=== PATIENT | female | born 1990 ===

== ENCOUNTER 2018-01-23 14:50 | Inpatient (IN) | payer OTHER ==
[2018-01-23] MEDS ORDERED: Sodium Chloride 0.9% 1,000 ML IV STA ×3 (15:40→20:05)
--- NOTE | 2018-01-23 15:41 | ED PDOC ---
HPI: Fever Fever Onset Was: 01/20/18 Additional Comments: 27 year old female presents to the ED complaining of fever associated with right sided back pain, nausea, vomiting, and diarrhea, onset three days ago. Patient reports of a fever with a tMax of 103 yesterday. Patient states she last took Advil this morning at 8 am. Denies urinary symptoms. PMD: None Provided Past Medical History Reviewed: Historical Data, Nursing Documentation, Vital Signs Vital Signs: Last Vital Signs Temp 99.2 F 01/23/18 18:01 Pulse 102 H 01/23/18 18:01 Resp 16 01/23/18 18:01 BP 100/51 L 01/23/18 19:39 Pulse Ox 97 01/23/18 18:01 - Medical History PMH: No Chronic Diseases - Surgical History Surgical History: No Surg Hx - Family History Family History: States: Unknown Family Hx - Home Medications Home Medications: Ambulatory Orders Medication Instructions Recorded Levofloxacin [Levaquin] 500 mg PO DAILY 7 Days #7 tablet 01/25/18 - Allergies Allergies/Adverse Reactions: Allergies Allergy/AdvReac Type Severity Reaction Status Date / Time No Known Allergies Allergy Verified 01/23/18 15:04 Review of Systems Constitutional: Positive for: Fever ([id number]) Gastrointestinal: Positive for: Nausea, Vomiting, Diarrhea Genitourinary Female: Negative for: Dysuria, Hematuria Musculoskeletal: Positive for: Back Pain (right sided ) Physical Exam - Reviewed Nursing Documentation Reviewed: Yes Vital Signs Reviewed: Yes - Physical Exam Appears: Positive for: Non-toxic, No Acute Distress Head Exam: Positive for: ATRAUMATIC, NORMOCEPHALIC Skin: Positive for: Normal Color Eye Exam: Positive for: Normal appearance ENT: Positive for: Normal ENT Inspection Neck: Positive for: Normal Cardiovascular/Chest: Positive for: Regular Rate, Rhythm. Negative for: Murmur Respiratory: Positive for: Normal Breath Sounds. Negative for: Respiratory Distress Gastrointestinal/Abdominal: Positive for: Normal Exam Back: Positive for: Normal Inspection, R CVA Tenderness Extremity: Positive for: Normal ROM. Negative for: Pedal Edema, Deformity Neurologic/Psych: Positive for: Alert, Oriented. Negative for: Motor/Sensory Deficits - Laboratory Results Result Diagrams: 01/24/18 13:25 01/24/18 13:25 - ECG O2 Sat by Pulse Oximetry: 99 (RA) Pulse Ox Interpretation: Normal Medical Decision Making Medical Decision Making: Time: 154 Impression: Flank Pain, fever Differentials include but not limited to urinary tract infection, pyelonephritis Plan: -- VBG Shock Panel -- CMP -- Lipase -- ED Urine -- ED Urine Dipstick -- CBC with differentials -- PTT -- Prothrombin Time -- Morphine 2 mg IV -- Sodium Chloride IV 1000 mls/hr -- Zofran Inj 4 mg IV -- Urinalysis Time: 1605 Plan: -- VBG -- CT Abd & Pelvis w.o contrast -- Motrin 600 mg PO -- Rocephin 1 gm Sodium Chloride 0.9% 100ml IV -- Tylenol 650 mg PO Time: 1730 CT ABD/PELVIS RESULTS FINDINGS: LOWER THORAX: Nonspecific elevation of left hemidiaphragm is noted. LIVER: Unremarkable. No gross lesion or ductal dilatation. GALLBLADDER AND BILE DUCTS: Unremarkable. PANCREAS: Unremarkable. No gross lesion or ductal dilatation. SPLEEN: Unremarkable. ADRENALS: Unremarkable. No mass. KIDNEYS AND URETERS: Unremarkable. No hydronephrosis. No solid mass. VASCULATURE: Unremarkable. No aortic aneurysm. BOWEL: Lack of oral and intravenous contrast limits evaluation the gastrointestinal tract. No bowel obstruction is appreciated throughout. Mild fecal loading is scattered throughout the large bowel. APPENDIX: Appendix not identified. No overt appendicitis pattern given limitations of noncontrast CT imaging. . PERITONEUM: Mild pelvic fluid is identified from uncertain etiology. Center possible adnexal cyst rupture. LYMPH NODES: Unremarkable. No enlarged lymph nodes. BLADDER: Unremarkable. REPRODUCTIVE: Intrauterine device in situ in the uterus. BONES: No acute fracture. OTHER FINDINGS: None. IMPRESSION: Nonspecific pelvic fluid of uncertain origin. Intrauterine device in situ. No radiodense urolithiasis, obstructive uropathy or perinephric reaction. Urinary bladder appears unremarkable. Further characterization of the abdominal pelvic versus possible using contrast CT if clinically warranted. Time: 1909 Plan: -- Morphine 2 mg IV Scribe Attestation: Documented by Isac Prabhakar acting as a scribe for Dr. Rashida Louis MD. Scribe Attestation: All medical record entries made by the Scribe were at my direction and personally dictated by me. I have reviewed the chart and agree that the record accurately reflects my personal performance of the history, physical exam, medical decision making, and the department course for this patient. I have also personally directed, reviewed, and agree with the discharge instructions and disposition. Disposition - Clinical Impression Clinical Impression: SIRS (systemic inflammatory response syndrome), UTI (urinary tract infection) - Disposition Disposition Time: 21:17 Condition: GUARDED - Pt Status Changed To: Hospital Disposition Of: Inpatient - Admit Certification Admit to Inpatient:: After my assessment, the patient will require hospitalization for at least two midnights. This is because of the severity of symptoms shown, intensity of services needed, and/or the medical risk in this patient being treated as an outpatient. - POA Present On Arrival: None
[2018-01-23 16:10] LABS: VENOUS BLOOD GAS PCO2 31 mmHg (40-60); VENOUS BLOOD GAS PO2 18 mm/Hg (30-55); VENOUS BLOOD PH 7.49 (7.32-7.43)
[2018-01-23 16:20] LABS: BASO % 0.2 % (0.0-2.0); EOS # 0.1 K/uL (0.0-0.7); EOS % 1.1 % (0.0-4.0); HEMOGLOBIN 13.5 g/dL (12.0-16.0); INR 1.3 (0.9-1.2); LYMPH # 1.1 K/uL (1.0-4.3); LYMPH % 8.9 % (20.0-40.0); MEAN CELL VOLUME 83.5 fl (81.0-99.0); MEAN CORPUSCULAR HEMOGLOBIN 27.1 pg (27.0-31.0); MEAN CORPUSCULAR HGB CONC 32.4 g/dL (33.0-37.0); MEAN PLATELET VOLUME 9.9 fl (7.2-11.7); MONO # 1.2 K/uL (0.0-0.8); MONO % 9.3 % (0.0-10.0); NEUT % 80.5 % (50.0-75.0); PARTIAL THROMBOPLASTIN TIME 29.2 Seconds (25.6-37.1); PLATELET COUNT 202 K/uL (130-400); RBC 4.98 Mil/uL (3.80-5.20); WHITE BLOOD COUNT 12.4 K/uL (4.8-10.8)
[2018-01-23 16:23] LABS: SQUAMOUS EPITHIAL 10 /hpf (0-5); URINE BACTERIA OCC (<OCC); URINE BILIRUBIN NEGATIVE (NEGATIVE); URINE BLOOD SMALL (NEGATIVE); URINE CLARITY CLOUDY (Clear); URINE COLOR YELLOW (YELLOW); URINE GLUCOSE (UA) NEG (Normal); URINE LEUKOCYTE ESTERASE LARGE Leu/uL (Negative); URINE PROTEIN 30 mg/dL (NEGATIVE); URINE UROBILINOGEN 0.2-1.0 mg/dL (0.2-1.0)
[2018-01-23 16:30] LABS: ALB/GLOB RATIO 1.2 (1.0-2.1); ALBUMIN 4.7 g/dL (3.5-5.0); ALT/SGPT 18 U/L (9-52); AST/SGOT 19 U/L (14-36); BLOOD UREA NITROGEN 11 mg/dl (7-17); CALCIUM 9.4 mg/dL (8.4-10.2); GFR AFRICAN-AMERICAN > 60; GFR NON-AFRICAN AMERICAN > 60; LIPASE 27 U/L (23-300)
[2018-01-23] MEDS ORDERED: cefTRIAXone (Rocephin) 1 gm Inj ONE (16:31)
[2018-01-23 17:26] LABS: BANDS 2 % (0-2); EOSINOPHIL 2 % (0-7); LARGE PLATELETS PRESENT; LYMPHOCYTE 12 % (20-50); MONOCYTE 9 % (0-10); NEUTROPHIL 75 % (42-75); PLATELET ESTIMATE NORMAL (NORMAL); TOTAL CELLS COUNTED 100
--- NOTE | 2018-01-23 17:32 | CT ---
PROCEDURE: CT Abdomen and Pelvis without intravenous contrast HISTORY: R flank pain COMPARISON: None. TECHNIQUE: Helical CT of the abdomen and pelvis was performed without oral or intravenous contrast as per referring physician request. Contrast dose: None Radiation dose: Total exam DLP = 300.47 mGy-cm. This CT exam was performed using one or more of the following dose reduction techniques: Automated exposure control, adjustment of the mA and/or kV according to patient size, and/or use of iterative reconstruction technique. FINDINGS: LOWER THORAX: Nonspecific elevation of left hemidiaphragm is noted. LIVER: Unremarkable. No gross lesion or ductal dilatation. GALLBLADDER AND BILE DUCTS: Unremarkable. PANCREAS: Unremarkable. No gross lesion or ductal dilatation. SPLEEN: Unremarkable. ADRENALS: Unremarkable. No mass. KIDNEYS AND URETERS: Unremarkable. No hydronephrosis. No solid mass. VASCULATURE: Unremarkable. No aortic aneurysm. BOWEL: Lack of oral and intravenous contrast limits evaluation the gastrointestinal tract. No bowel obstruction is appreciated throughout. Mild fecal loading is scattered throughout the large bowel. APPENDIX: Appendix not identified. No overt appendicitis pattern given limitations of noncontrast CT imaging. . PERITONEUM: Mild pelvic fluid is identified from uncertain etiology. Center possible adnexal cyst rupture. LYMPH NODES: Unremarkable. No enlarged lymph nodes. BLADDER: Unremarkable. REPRODUCTIVE: Intrauterine device in situ in the uterus. BONES: No acute fracture. OTHER FINDINGS: None. IMPRESSION: Nonspecific pelvic fluid of uncertain origin. Intrauterine device in situ. No radiodense urolithiasis, obstructive uropathy or perinephric reaction. Urinary bladder appears unremarkable. Further characterization of the abdominal pelvic versus possible using contrast CT if clinically warranted.
[2018-01-24] MEDS: Acetaminophen-Codeine 300/30 mg Tab PO PRN ×2 (00:29→08:18)
[2018-01-24] MEDS: Sodium Chloride 0.9% 1,000 ML IV SCH ×3 (00:32→13:17)
[2018-01-24] MEDS: Enoxaparin 40 mg Syringe SC SCH (09:12)
[2018-01-24 13:32] LABS: HEMOGLOBIN 11.9 g/dL (12.0-16.0); MEAN CELL VOLUME 83.1 fl (81.0-99.0); MEAN CORPUSCULAR HEMOGLOBIN 27.2 pg (27.0-31.0); MEAN CORPUSCULAR HGB CONC 32.8 g/dL (33.0-37.0); RBC 4.36 Mil/uL (3.80-5.20); RED CELL DISTRIBUTION WIDTH 13.2 % (11.5-14.5); WHITE BLOOD COUNT 11.9 K/uL (4.8-10.8)
[2018-01-24 13:39] LABS: ALB/GLOB RATIO 1.2 (1.0-2.1); ALBUMIN 3.7 g/dL (3.5-5.0); ALT/SGPT 22 U/L (9-52); AST/SGOT 15 U/L (14-36); BLOOD UREA NITROGEN 5 mg/dl (7-17); CALCIUM 8.4 mg/dL (8.4-10.2); GFR AFRICAN-AMERICAN > 60; GFR NON-AFRICAN AMERICAN > 60
--- NOTE | 2018-01-24 14:51 | CP.PCM.HP ---
History of Present Illness - History of Present Illness History of Present Illness: Patient seen and examined at bedside with A27 yr old F presented to ED with complaint of fever, nausea, vomiting, diarrhea and right back pain x 3 days. Denies dysuria, hematuria, abdominal pain, headaches. Reports Tmax was 103 F on saturday. Symptoms were minimally alleviated by Advil, last dose saturday morning. PMD: none PMHx: denies SurgHx: denies FMHx: noncontributory SocHx: denies tobacco/Etoh or drugs Medications: Advil PRN fever/pain Allergies: NKDA ED course: BP 100/51 mmHg, HR 102 bpm, Resp 16, Temp 101.2 F -BP labile going down to SBP in 80's to 90's -CBC: WBC 12.4 with neut % 80.5, rest wnl -coags INR 1.3, PT 14, PTT 29.2 -VBG: pH 7.49, pO2 18, pCO2 31, lactate 1.1 -CMP wnl, lipase normal -urinalysis: positive nitrates, large leukocyte esterase -CT abd pelvis w/o contrast: no urolithiasis, obstructive uropathy or perinephric reaction: nonspecific pelvic fluid of uncertain origin -ED treatment: Motrin 600mg PO once, 1L NS IV bolus, Rocephin 1gm IV once, Tylenol 650mg PO once Present on Admission - Present on Admission Any Indicators Present on Admission: No History of DVT/PE: No History of Uncontrolled Diabetes: No Urinary Catheter: No Decubitus Ulcer Present: No History Surgical Site Infection Following: None Review of Systems - Constitutional Constitutional: Chills. absent: Weakness - EENT Eyes: absent: Change in Vision Nose/Mouth/Throat: absent: Sore Throat - Cardiovascular Cardiovascular: absent: Chest Pain, Dyspnea - Respiratory Respiratory: absent: Cough, Hemoptysis - Gastrointestinal Gastrointestinal: Diarrhea, Nausea, Vomiting. absent: Abdominal Pain - Genitourinary Genitourinary: absent: Dysuria - Musculoskeletal Musculoskeletal: Back Pain (right) - Neurological Neurological: Focal Weakness. absent: Disequilibrium, Dizziness - Psychiatric Psychiatric: absent: Anxiety - Endocrine Endocrine: absent: Polydipsia, Polyphagia, Polyuria - Hematologic/Lymphatic Hematologic: absent: Easy Bleeding, Easy Bruising Past Patient History - Past Medical History & Family History Past Medical History?: No - Past Social History Smoking Status: Never Smoked - CARDIAC Hx Cardiac Disorders: No - PULMONARY Hx Respiratory Disorders: No - NEUROLOGICAL Hx Neurological Disorder: No - HEENT Hx HEENT Problems: No - RENAL Hx Chronic Kidney Disease: No - ENDOCRINE/METABOLIC Hx Endocrine Disorders: No - HEMATOLOGICAL/ONCOLOGICAL Hx Blood Disorders: No Hx AIDS: No Hx Human Immunodeficiency Virus (HIV): No - INTEGUMENTARY Hx Dermatological Problems: No - MUSCULOSKELETAL/RHEUMATOLOGICAL Hx Musculoskeletal Disorders: No Hx Falls: No - GASTROINTESTINAL Hx Gastrointestinal Disorders: No - GENITOURINARY/GYNECOLOGICAL Hx Genitourinary Disorders: No - PSYCHIATRIC Hx Psychophysiologic Disorder: No Hx Substance Use: No - SURGICAL HISTORY Hx Surgeries: No - ANESTHESIA Hx Anesthesia: No Meds Allergies/Adverse Reactions: Allergies Allergy/AdvReac Type Severity Reaction Status Date / Time No Known Allergies Allergy Verified 01/23/18 15:04 Physical Exam - Constitutional Appears: No Acute Distress - Head Exam Head Exam: ATRAUMATIC, NORMOCEPHALIC - ENT Exam ENT Exam: Mucous Membranes Moist - Respiratory Exam Respiratory Exam: NORMAL BREATHING PATTERN - Cardiovascular Exam Cardiovascular Exam: REGULAR RHYTHM - GI/Abdominal Exam GI & Abdominal Exam: Normal Bowel Sounds, Soft - Extremities Exam Extremities exam: Negative for: calf tenderness, pedal edema - Back Exam Back exam: CVA tenderness (R) - Neurological Exam Neurological exam: Alert, CN II-XII Intact, Oriented x3 - Psychiatric Exam Psychiatric exam: Normal Affect, Normal Mood - Skin Skin Exam: Dry, Warm Results - Vital Signs Recent Vital Signs: Last Vital Signs Temp 99.2 F 01/24/18 12:00 Pulse 99 H 01/24/18 12:00 Resp 20 01/24/18 12:00 BP 102/60 01/24/18 12:00 Pulse Ox 99 01/24/18 12:00 - Labs Result Diagrams: 01/24/18 13:25 01/24/18 13:25 Labs: Laboratory Results - last 24 hr 01/23/18 01/23/18 01/23/18 15:42 15:42 15:42 WBC 12.4 H RBC 4.98 Hgb 13.5 Hct 41.6 MCV 83.5 MCH 27.1 MCHC 32.4 L RDW 13.0 Plt Count 202 MPV 9.9 Neut % (Auto) 80.5 H Lymph % (Auto) 8.9 L [place] % (Auto) 9.3 Eos % (Auto) 1.1 Baso % (Auto) 0.2 Neut # (Auto) 10.0 H Lymph # (Auto) 1.1 [place] # (Auto) 1.2 H Eos # (Auto) 0.1 Baso # (Auto) 0.0 Neutrophils % (Manual) 75 Band Neutrophils % 2 Lymphocytes % (Manual) 12 L Monocytes % (Manual) 9 Eosinophils % (Manual) 2 Platelet Estimate Normal Large Platelets Present PT 14.0 H INR 1.3 H APTT 29.2 pO2 VBG pH VBG pCO2 VBG HCO3 VBG Total CO2 VBG O2 Sat (Calc) VBG Base Excess VBG Potassium Glucose Lactate FiO2 Sodium 140 Potassium 4.2 Chloride 100 Carbon Dioxide 28 Anion Gap 16 BUN 11 Creatinine 0.7 Est GFR ( Amer) > 60 Est GFR (Non-Af Amer) > 60 Random Glucose 100 Calcium 9.4 Total Bilirubin 1.3 AST 19 ALT 18 Alkaline Phosphatase 71 Total Protein 8.7 H Albumin 4.7 Globulin 4.0 H Albumin/Globulin Ratio 1.2 Lipase 27 Venous Blood Potassium Urine Color Urine Clarity Urine pH Ur Specific [place] Urine Protein Urine Glucose (UA) Urine Ketones Urine Blood Urine Nitrate Urine Bilirubin Urine Urobilinogen Ur Leukocyte Esterase Urine RBC (Auto) Urine Microscopic WBC Ur Squamous Epith Cells Urine Bacteria 01/23/18 01/23/18 01/24/18 15:42 16:05 13:25 WBC 11.9 H RBC 4.36 Hgb 11.9 L Hct 36.2 MCV 83.1 MCH 27.2 MCHC 32.8 L RDW 13.2 Plt Count 148 MPV Neut % (Auto) Lymph % (Auto) [place] % (Auto) Eos % (Auto) Baso % (Auto) Neut # (Auto) Lymph # (Auto) [place] # (Auto) Eos # (Auto) Baso # (Auto) Neutrophils % (Manual) Band Neutrophils % Lymphocytes % (Manual) Monocytes % (Manual) Eosinophils % (Manual) Platelet Estimate Large Platelets PT INR APTT pO2 18 L VBG pH 7.49 H VBG pCO2 31 L VBG HCO3 23.9 VBG Total CO2 24.6 VBG O2 Sat (Calc) 38.5 L VBG Base Excess 1.0 VBG Potassium 3.6 Glucose 105 Lactate 1.1 FiO2 21.0 Sodium 134.0 Potassium Chloride 102.0 Carbon Dioxide Anion Gap BUN Creatinine Est GFR ( Amer) Est GFR (Non-Af Amer) Random Glucose Calcium Total Bilirubin AST ALT Alkaline Phosphatase Total Protein Albumin Globulin Albumin/Globulin Ratio Lipase Venous Blood Potassium 3.6 Urine Color Yellow Urine Clarity Cloudy Urine pH 6.0 Ur Specific [place] 1.019 Urine Protein 30 Urine Glucose (UA) Neg Urine Ketones Negative Urine Blood Small Urine Nitrate Positive H Urine Bilirubin Negative Urine Urobilinogen 0.2-1.0 Ur Leukocyte Esterase Large Urine RBC (Auto) 6 H Urine Microscopic WBC 71 H Ur Squamous Epith Cells 10 H Urine Bacteria Occ H 01/24/18 13:25 WBC RBC Hgb Hct MCV MCH MCHC RDW Plt Count MPV Neut % (Auto) Lymph % (Auto) [place] % (Auto) Eos % (Auto) Baso % (Auto) Neut # (Auto) Lymph # (Auto) [place] # (Auto) Eos # (Auto) Baso # (Auto) Neutrophils % (Manual) Band Neutrophils % Lymphocytes % (Manual) Monocytes % (Manual) Eosinophils % (Manual) Platelet Estimate Large Platelets PT INR APTT pO2 VBG pH VBG pCO2 VBG HCO3 VBG Total CO2 VBG O2 Sat (Calc) VBG Base Excess VBG Potassium Glucose Lactate FiO2 Sodium 139 Potassium 4.0 Chloride 108 H Carbon Dioxide 22 Anion Gap 13 BUN 5 L Creatinine 0.7 Est GFR ( Amer) > 60 Est GFR (Non-Af Amer) > 60 Random Glucose 98 Calcium 8.4 Total Bilirubin 0.8 AST 15 ALT 22 Alkaline Phosphatase 56 Total Protein 6.8 Albumin 3.7 Globulin 3.1 Albumin/Globulin Ratio 1.2 Lipase Venous Blood Potassium Urine Color Urine Clarity Urine pH Ur Specific [place] Urine Protein Urine Glucose (UA) Urine Ketones Urine Blood Urine Nitrate Urine Bilirubin Urine Urobilinogen Ur Leukocyte Esterase Urine RBC (Auto) Urine Microscopic WBC Ur Squamous Epith Cells Urine Bacteria Assessment & Plan - Assessment and Plan (Free Text) Assessment: 27 yr old admitted for UTI with severe back pain and CT abd pelvis w/o contrast finding of nonspecific pelvic fluid of uncertain origin. Plan: -admit to telemetry -pain management -urine culture and sensitivity -obgyn consult appreciated -ceftriaxone 1gm daily -Pelvis US - Date & Time Date: 01/24/18 Time: 07:30
--- NOTE | 2018-01-24 16:11 | US ---
HISTORY: Fevers, non specific pelvic fluid, pt has IUD COMPARISON: CT scan of the abdomen pelvis performed earlier the same day. TECHNIQUE: Grayscale, color Doppler and spectral usual pelvis performed transabdominally FINDINGS: UTERUS: Measures 8.2 x 4.0 x 5.0 cm. Normal in size and appearance. No fibroid or other mass lesion seen. ENDOMETRIUM: Measures 4 mm in diameter. Intrauterine device in place. CERVIX: No cervical abnormality identified. RIGHT OVARY: Measures 2.8 x 1.6 x 2.9 cm. No solid mass. Normal flow. LEFT OVARY: Measures 3.5 x 3.4 x 2.7 cm. Complex cyst with debris measuring 2.0 x 1.9 x 1.6 cm. Normal flow. FREE FLUID: Small amount of free fluid. OTHER FINDINGS: None. IMPRESSION: Left ovarian complex cyst with debris measuring up to 2.0 cm. Small amount of free fluid. Intrauterine device in place.
[2018-01-25] MEDS: Sodium Chloride 0.9% 1,000 ML IV SCH (02:09)
[2018-01-25 08:16] VITALS: RESP 20
[2018-01-25] MEDS: Enoxaparin 40 mg Syringe SC SCH (09:39)
--- NOTE | 2018-01-25 13:02 | PN ---
DATE: 01/25/2018 SUBJECTIVE: The patient is seen and examined. Interim events noted. SERVICE CASHIER consult is pending. The patient had an episode of pain yesterday, but now the patient chest pain or shortness of breath. No urinary symptoms. PHYSICAL EXAMINATION: GENERAL: The patient is in no acute distress. VITAL SIGNS: Stable. HEART: S1 and S2, normal and regular. LUNGS: Good bilateral air exchange. ABDOMEN: Soft and nontender. No sign of acute abdomen. No guarding. No rigidity. No rebound. Bowel sounds are plus and normal. EXTREMITIES: No edema. No calf swelling. No tenderness. No acute ischemia. SDET: Exam is essentially unchanged. DIAGNOSTIC DATA: Available diagnostic data reviewed. Sonogram is consistent with . ASSESSMENT AND PLAN: Overall, the patient's general medical condition is stable. Plan as ordered. Pato Francois MD
--- NOTE | 2018-01-25 13:10 | CP.PCM.CON ---
Addendum entered and electronically signed by Mychal Khan MD 01/25/18 14:35: Education Liaison in room: Her nurse: david Original Note: <Mychal Khan - Last Filed: 01/25/18 13:56> History of Present Illness - History of Present Illness History of Present Illness: Chelsea is a pleasant 27 yo lady with pmhx of recurrent UTIs presented with R sided flank pain and preceding history, which included fevers (Tmax 103) for 3 days, nausea and non bloody, mucous vomiting x3 per day. Denies dysuria, hematuria, vaginal bleeding/discharge. Of note: pt reports planned dental implant and was started on an abx (possible penicillin) for 2 weeks Menses: LMP 12/25/2017; started at age 12, every 28 days, lasting 6-7 days, requiring 4-5 pads per day, has been decreasing in duration since IUD (merena) was placed 6 months ago OBGYN: Dr. Slade obhx: 2017 Full term Female c/s 2/2 prolonged/arrest of labor pmhx: recurrent UTIs approximately bi annually requiring abx (unknown) since the age of 16; last occurance 2 years ago. psurg: none famhx: not contributory soc: denies etoh/smoking/illicit drugs/history of STIs Rx: Advil, NKDA Gen: AAOx3, in no acute distress Cardiac: S1S2 no murmurs Lungs: CTA bilaterally, no wheezing CVA non tender Abdo: active bowel sounds; bilateral kidney ballotment: nontender; nontender abdomen on all quadrants. Negative for calf tenderness Pelvic: CMT negative, no adnexal masses palpated 27 yo F pmhx of recurrent UTI presents with findings for UTI on Ceftriaxone 1 g IV qDaily -CT pelvis: L ovarian complex cyst with debris measuring up to 2.0 cm; Small amount of free fluid; IUD in place -Vitals stable: Afebrile; last fever of 100.7 on 01/24 @16:33 -Tolerating diet, no vomiting since yesterday -WBC: trending down from 12.4 --> 11.9 -f/u urine culture, however, current abx seems to be effective -Of note, pt reports 2 family members have been cultured positive for ESBL -Stable from OB standpoint for discharge home and f/u with [employer]. -ER precautions reviewed with pt. Case dw OB Attending: Dr. Herbert Khan MD PGY1 Past Patient History - Past Medical History & Family History Past Medical History?: No - Past Social History Smoking Status: Never Smoked - CARDIAC Hx Cardiac Disorders: No - PULMONARY Hx Respiratory Disorders: No - NEUROLOGICAL Hx Neurological Disorder: No - HEENT Hx HEENT Problems: No - RENAL Hx Chronic Kidney Disease: No - ENDOCRINE/METABOLIC Hx Endocrine Disorders: No - HEMATOLOGICAL/ONCOLOGICAL Hx Blood Disorders: No Hx AIDS: No Hx Human Immunodeficiency Virus (HIV): No - INTEGUMENTARY Hx Dermatological Problems: No - MUSCULOSKELETAL/RHEUMATOLOGICAL Hx Musculoskeletal Disorders: No Hx Falls: No - GASTROINTESTINAL Hx Gastrointestinal Disorders: No - GENITOURINARY/GYNECOLOGICAL Hx Genitourinary Disorders: No - PSYCHIATRIC Hx Psychophysiologic Disorder: No Hx Substance Use: No - SURGICAL HISTORY Hx Surgeries: No - ANESTHESIA Hx Anesthesia: No Meds Allergies/Adverse Reactions: Allergies Allergy/AdvReac Type Severity Reaction Status Date / Time No Known Allergies Allergy Verified 01/23/18 15:04 - Medications Medications: Current Medications Acetaminophen (Tylenol 325mg Tab) 650 mg PO Q6 PRN PRN Reason: Headache Acetaminophen/Codeine Phosphate (Tylenol/Codeine 300 Mg/30 Mg) 1 tab PO Q6 PRN PRN Reason: Pain, severe (8-10) Last Admin: 01/24/18 08:18 Dose: 1 tab Enoxaparin Sodium (Lovenox) 40 mg SC DAILY LANA PRN Reason: Protocol Last Admin: 01/25/18 09:39 Dose: 40 mg Ceftriaxone Sodium 1 gm/ (Sodium Chloride) 100 mls @ 100 mls/hr IVPB DAILY LANA PRN Reason: Protocol Last Admin: 01/25/18 09:38 Dose: 100 mls/hr Ketorolac Tromethamine (Toradol) 15 mg IVP Q6 PRN PRN Reason: Pain, moderate (4-7) Last Admin: 01/25/18 04:29 Dose: 15 mg Ondansetron HCl (Zofran Inj) 4 mg IVP Q6 PRN PRN Reason: Nausea/Vomiting Last Admin: 01/24/18 14:14 Dose: 4 mg Results - Vital Signs Recent Vital Signs: Last Vital Signs Temp 98.2 F 01/25/18 12:39 Pulse 78 01/25/18 12:39 Resp 20 01/25/18 12:39 BP 99/63 L 01/25/18 12:39 Pulse Ox 98 01/25/18 12:39 - Labs Result Diagrams: 01/24/18 13:25 01/24/18 13:25 Labs: Laboratory Results - last 24 hr 01/24/18 01/24/18 13:25 13:25 WBC 11.9 H RBC 4.36 Hgb 11.9 L Hct 36.2 MCV 83.1 MCH 27.2 MCHC 32.8 L RDW 13.2 Plt Count 148 Sodium 139 Potassium 4.0 Chloride 108 H Carbon Dioxide 22 Anion Gap 13 BUN 5 L Creatinine 0.7 Est GFR ( Amer) > 60 Est GFR (Non-Af Amer) > 60 Random Glucose 98 Calcium 8.4 Total Bilirubin 0.8 AST 15 ALT 22 Alkaline Phosphatase 56 Total Protein 6.8 Albumin 3.7 Globulin 3.1 Albumin/Globulin Ratio 1.2 <Omer Godinez O - Last Filed: 01/26/18 09:18> Results - Vital Signs Recent Vital Signs: Last Vital Signs Temp 98.8 F 01/25/18 16:02 Pulse 79 01/25/18 16:02 Resp 20 01/25/18 16:02 BP 107/66 01/25/18 16:02 Pulse Ox 99 01/25/18 16:02 - Labs Result Diagrams: 01/24/18 13:25 01/24/18 13:25 Attending/Attestation - Attestation I have personally seen and examined this patient.: No I have fully participated in the care of the patient.: Yes I have reviewed all pertinent clinical information: Yes Notes (Text): 01/26/18 09:15. I discussed this patient with the resident and dictated the management plan and agrees with the above note. Omer Godinez MD.
[2018-01-25 16:02] VITALS: BP 107/66; PULSE 79; TEMP 98.8; O2SAT 99
== END 2018-01-25 16:25 | disposition home or self-care (01) | DRG 321 ==
LOC: H.ER 14:50 → H.ERHOLD 21:17 → H.TEL 22:52
PROVIDERS: ADMIT Internal Medicine; ATTEND Internal Medicine
DX: N39.0 Urinary tract infection, site not specified (principal); N83.292 Other ovarian cyst, left side; Z87.440 Personal history of urinary (tract) infections